=== PATIENT | male | born 1975 | race African-American/Black ===

== ENCOUNTER 2021-04-25 17:01 | Emergency (ER) | payer OTHER ==
[2021-04-25 17:09] VITALS: BP 120/92; PULSE 108; TEMP 98.6; BMI 33.7
== END 2021-04-25 18:03 | disposition home or self-care (01) ==
LOC: JER 17:01
DX: M25.512 Pain in left shoulder (principal); V89.9XXA Person injured in unspecified vehicle accident, initial encounter; Y92.9 Unspecified place or not applicable
CPT/HCPCS: 99283-25

== ENCOUNTER → 2022-12-14 | Emergency (ER) | payer OTHER ==
[2022-12-14 16:21] VITALS: BP 125/78; PULSE 95; RESP 18; TEMP 97.5; BMI 34.3
[2022-12-14 17:51] LABS: BASO % 1.5 % (0-2.0); EOS % 2.2 % (0-4.5); HEMATOCRIT 43.6 % (35.4-49); HEMOGLOBIN 14.7 GM/dL (11.7-16.9); LYMPH % 42.7 % (8-40); MCH 29.7 pg (25.7-33.7); MCHC 33.7 g/dl (32.0-35.9); MEAN PLT VOLUME 7.1 fl (7.5-11.1); MONO % 8.7 % (3.8-10.2); NEUT % 44.9 % (42.8-82.8); PLATELET COUNT 255 10^3/uL (134-434); RBC 4.95 M/mm3 (4.00-5.60); RDW 14.2 % (11.9-15.9); WHITE BLOOD COUNT 6.7 K/mm3 (4.0-10.0)
[2022-12-14 17:57] LABS: INR 1.03 (0.83-1.09); PROTHROMBIN TIME (PATIENT) 11.9 SEC (9.7-13.0)
[2022-12-14 18:14] LABS: CALCIUM 9.8 mg/dL (8.5-10.1)
[2022-12-14 18:15] LABS: ALBUMIN 3.9 g/dl (3.4-5.0); BLOOD UREA NITROGEN 16.3 mg/dL (7-18)
[2022-12-14 18:20] LABS: BILIRUBIN,TOTAL 0.6 mg/dL (0.2-1)
[2022-12-14 18:21] LABS: TOT PROT 7.2 g/dl (6.4-8.2)
== END | disposition home or self-care (01) ==
LOC: JER 16:05
DX: R07.9 Chest pain, unspecified (principal); Z20.822 Contact with and (suspected) exposure to COVID-19
CPT/HCPCS: 36415; 71045-TC-FY; 80053; 82962; 84484; 85025; 85610; 85730; 93005; 93010; 99285-25; C9803-CS; U0003; U0005